=== PATIENT | male | born 1960 | race Caucasian/White ===

== ENCOUNTER 2017-03-21 21:41 | Emergency (ER) | payer SELFPAY ==
--- NOTE | 2017-03-24 04:09 | ER ---
ADMIT: 03/21/2017 RM/LOC: ER [facility] MR#: [id number] [address] [id number] ROBERT COOLEY [address] [place] [address] Emergency Room Report SEX: M AGE: 56 : 1960 DATE: 03/21/2017 BRIEF ADDENDUM: Please see my T-sheet for complete review of systems, past medical history, and physical exam. CHIEF COMPLAINT: Back pain. HISTORY OF PRESENT ILLNESS: This is a pleasant 56-year-old gentleman, who presents to the ER for some back pain for the past 3 days with concerns of a possible kidney stone. The patient denies any recent injury. States he has had a kidney stone in the past and this feels somewhat similar to that. States he began using some hydrocodone he had left over from his previous stone as well as some Flomax on Sunday, which did control his pain; however, did exacerbate some constipation he has been dealing with. States he has some generalized stomach discomfort and nausea. Denies any dysuria or frequency. Denies any radiation of pain into his groin. Does have past medical history of kidney stones as well as an appendectomy. COURSE IN THE EMERGENCY ROOM: The patient was seen and examined. He is afebrile and nontoxic. He has some nonspecific pain on the right side of the lower back, not truly CVA tenderness. Generalized abdominal discomfort. He was given 15 of Toradol IM, 4 mg Zofran ODT and GI cocktail, which he states did relieve much of his pain and discomfort. We also did get a urine on him showing 20 WBCs per high-power field as well as 2+ leukocyte esterase, consistent with acute urinary tract infection. He was given his first dose of Bactrim in the department prior to discharge, as well Dulcolax suppository. IMPRESSION: 1. Acute cystitis. 2. Constipation. DISPOSITION: Patient was provided a script for Bactrim DS 1 tab p.o. b.i.d. for 3 days. He is to finish this in its entirety. He can use Dulcolax suppositories as needed for constipation. Follow up with Dr. Rachel if he fails to improve or with any other concerns. Questions were sought and answered to the best of my ability. The patient was discharged in stable condition. MALINA Romero / Azar Cao MD / elver JOB #: [id number] CC: Azar Cao MD, Attending Physician Daniel Rachel MD, Family Physician
== END 2017-03-22 00:55 | disposition home or self-care (01) ==
LOC: ER 21:41
DX: N30.00 Acute cystitis without hematuria (principal); K59.00 Constipation, unspecified; M54.9 Dorsalgia, unspecified; Z87.442 Personal history of urinary calculi; Z98.890 Other specified postprocedural states